=== PATIENT | female | born 1980 | race Caucasian/White ===

== ENCOUNTER 2017-07-21 11:00 | Emergency (ER) | payer BC ==
--- NOTE | 2017-07-21 11:45 | RAD ---
PA AND LATERAL CHEST: History: Cough, shortness of breath, chest pain. FINDINGS: The heart size is normal. The lungs are expanded without confluent areas of consolidation, pneumothor ax, or pleural effusions. IMPRESSION: No radiographic evidence of acute cardiopulmonary process. POS: [facility]
== END 2017-07-21 12:00 | disposition home or self-care (01) ==
LOC: SCSER 11:00
DX: J10.1 Influenza due to other identified influenza virus with other respiratory manifestations (principal)
CPT/HCPCS: 71046